=== PATIENT | male | born 1945 | race Caucasian/White ===

== ENCOUNTER 2021-07-22 21:43 | Observation (INO) | payer MEDICARE ==
[2021-07-22 21:48] VITALS: BMI 30.9
[2021-07-22] MEDS ORDERED: Senokot S 8.6-50 MG TAB PO PRN (21:56)
[2021-07-22] MEDS ORDERED: Ondansetron PF 4 MG/2 ML Vial IVP PRN (21:56)
[2021-07-22] MEDS ORDERED: Calcium Carbonate 500 MG ChewTAB PO PRN (21:56)
[2021-07-22] MEDS ORDERED: Acetaminophen 325 MG TAB PO PRN (21:56)
[2021-07-22] MEDS ORDERED: HYDROcodone/Acetaminophen 5/325 mg Tablet PO PRN (21:56)
[2021-07-22] MEDS ORDERED: Zolpidem Tartrate 5 MG TAB PO PRN (21:56)
[2021-07-22] MEDS ORDERED: Guaifenesin DM 100-10/5 ML UDCUP PO PRN (21:56)
[2021-07-22] MEDS ORDERED: Meclizine HCl 25 MG TAB PO PRN (21:59)
[2021-07-22] MEDS ORDERED: Lactated Ringer's 1,000 ML IV SCH (22:00)
[2021-07-22] MEDS ORDERED: Sodium Chloride 0.9% 500 ML IV SCH ×2 (22:15→23:45)
[2021-07-22 22:32] LABS: Troponin I 0.183 ng/mL (< 0.028)
[2021-07-23 07:45] LABS: Anion Gap 12 mmol/L (10-20); BUN (Urea Nitrogen) 20 mg/dL (8.4-25.7); Calc. Creatinine Clearance 72 mL/min (70-130); Calcium 8.7 mg/dL (7.8-10.44); Carbon Dioxide 23 mmol/L (23-31); Cardiac Risk 3.5 (Less than 4.5); Chloride 107 mmol/L (98-107); Cholesterol 94 mg/dl (< 200 Desired); Glucose 84 mg/dL (83-110); HDL Cholesterol 27 mg/dL (>60 Neg Risk); LDL Cholesterol, Calculated 52 mg/dL; Potassium 3.9 mmol/L (3.5-5.1); Sodium 138 mmol/L (136-145); Triglycerides 75 mg/dL (Less than 150)
[2021-07-23 07:52] LABS: CKMB 2.3 ng/mL (0-6.6)
[2021-07-23] MEDS: Famotidine 20 MG TAB PO SCH ×2 (08:35→20:34)
[2021-07-23] MEDS: Aspirin 81 mg Enteric Coated Tablet PO SCH (08:35)
[2021-07-23] MEDS: Multivitamin W/ Minerals 1 TAB PO SCH (08:36)
[2021-07-23] MEDS: Ubidecarenone 50 MG CAP PO SCH ×2 (08:36→20:34)
[2021-07-23] MEDS: Atorvastatin Calcium 40 MG TAB PO SCH (08:36)
[2021-07-23] MEDS: Clopidogrel Bisulfate 75 MG TAB PO SCH (08:36)
[2021-07-23] MEDS: Metoprolol Tartrate 25 MG TAB PO SCH ×2 (08:36→22:55)
[2021-07-23] MEDS: Fluticasone Propionate Nasal Spray 16 gm Bottle NASAL SCH (08:38)
[2021-07-23] MEDS ORDERED: Enoxaparin Sodium 40 MG/0.4 ML SYRINGE SC SCH (09:00)
[2021-07-23 17:26] LABS: SARS-CoV-2 PCR by NAA Not Detected (NotDetected)
[2021-07-23] MEDS ORDERED: Communication Order-Pharmacy FS SCH (19:00)
[2021-07-24 06:02] LABS: Anion Gap 13 mmol/L (10-20); BUN (Urea Nitrogen) 13 mg/dL (8.4-25.7); Calc. Creatinine Clearance 82 mL/min (70-130); Calcium 8.9 mg/dL (7.8-10.44); Carbon Dioxide 21 mmol/L (23-31); Chloride 107 mmol/L (98-107); Glucose 83 mg/dL (83-110); Potassium 3.8 mmol/L (3.5-5.1); Sodium 137 mmol/L (136-145)
[2021-07-24 06:15] LABS: #Basophils 0.1 10x3/uL (0.0-0.2); #Eosinphils 0.3 10x3/uL (0.0-0.5); #Monocytes 0.9 10x3/uL (0.0-1.1); #Neutrophils 5.8 10x3/uL (1.5-8.4); %Basophils 0.7 % (0.0-2.0); %Eosinophils 3.3 % (0.0-6.0); %Lymphocytes 20.3 % (18.0-47.0); %Monocytes 10.1 % (0.0-10.0); %Neutrophils 65.1 % (40.0-75.0); Mean Corpuscular Hemoglobin 32.3 pg (27.0-33.0); Mean Corpuscular Volume 94.8 fl (81.2-95.1); Platelet Count 234 10x3/uL (150-450); RBC Distribution Width 14.3 % (11.5-14.5); Red Blood Cell (RBC) Count 4.03 10x6/uL (4.32-5.72); White Blood Cell (WBC) Count 8.9 10x3/uL (3.5-10.5)
[2021-07-24] MEDS ORDERED: Heparin 10,000 UNITS/ 10 ML VIAL ONE ×2 (07:39→09:30)
[2021-07-24] MEDS ORDERED: Nitroglycerin 50 MG/250 ML BOT 250 ML ONE (07:39)
[2021-07-24] MEDS ORDERED: Adenosine 6 MG/2 ML VIAL ONE ×2 (07:40→07:41)
[2021-07-24] MEDS ORDERED: Sodium Chloride 0.9% 1,000 ML ONE (07:41)
[2021-07-24] MEDS ORDERED: Lidocaine 1% (PF) 30 ML VIAL ONE (07:50)
[2021-07-24] MEDS: Ubidecarenone 50 MG CAP PO SCH (07:57)
[2021-07-24] MEDS: Aspirin 81 mg Enteric Coated Tablet PO SCH (07:57)
[2021-07-24] MEDS: Clopidogrel Bisulfate 75 MG TAB PO SCH (07:57)
[2021-07-24] MEDS: Metoprolol Tartrate 25 MG TAB PO SCH (07:57)
[2021-07-24] MEDS: Atorvastatin Calcium 40 MG TAB PO SCH (07:58)
[2021-07-24] MEDS: Famotidine 20 MG TAB PO SCH (07:58)
[2021-07-24] MEDS: Multivitamin W/ Minerals 1 TAB PO SCH (07:58)
[2021-07-24] MEDS: Fluticasone Propionate Nasal Spray 16 gm Bottle NASAL SCH (08:02)
[2021-07-24] MEDS ORDERED: Fentanyl 100 MCG/2 ML VIAL ONE (08:23)
[2021-07-24] MEDS ORDERED: Midazolam HCl 2 mg/2 ml Vial ONE ×2 (08:24→08:48)
[2021-07-24] MEDS ORDERED: Atropine Sulfate 0.4 mg/1 ml Vial ONE (08:28)
[2021-07-24] MEDS ORDERED: Ondansetron PF 4 MG/2 ML Vial ONE (08:28)
[2021-07-24] MEDS ORDERED: TICAGRELOR 90 MG TABLET ONE (09:26)
[2021-07-24] MEDS ORDERED: Protamine Sulfate 50 MG/5 ML VIAL SLOW IVP SCH (10:00)
[2021-07-24] MEDS ORDERED: Protamine Sulfate 250 MG/25 ML VIAL SLOW IVP SCH (10:15)
[2021-07-24 11:44] VITALS: BP 125/70; TEMP 97.4
[2021-07-24] MEDS ORDERED: Sodium Chloride 0.9% 1,000 ML IV SCH (11:45)
[2021-07-24] MEDS: OMEGA ACID ETHYL ESTERS PO SCH ×2 (13:35→13:37)
[2021-07-24] MEDS: [UNRECOGNIZED DRUG - OTHER] PO SCH (13:35)
[2021-07-24] MEDS ORDERED: Atorvastatin Calcium 40 MG TAB PO SCH (21:00)
[2021-07-24] MEDS ORDERED: TICAGRELOR 90 MG TABLET PO SCH (21:00)
[2021-07-25] MEDS ORDERED: Amlodipine 5 MG TAB PO SCH (09:00)
[2021-07-25] MEDS ORDERED: Aspirin Chewable 81 MG TAB PO SCH (09:00)
[2021-07-25] MEDS ORDERED: Hydrochlorothiazide 25 MG TAB PO SCH (09:00)
[2021-07-25] MEDS ORDERED: Losartan Potassium 50 MG TAB PO SCH (09:00)
== END 2021-07-24 15:45 | disposition home or self-care (01) ==
LOC: CSHTELE 21:43
PROVIDERS: ADMIT Family Medicine; ATTEND Nurse Practitioner Family
DX: I21.4 Non-ST elevation (NSTEMI) myocardial infarction (principal); R55 Syncope and collapse; N17.9 Acute kidney failure, unspecified; I73.9 Peripheral vascular disease, unspecified; F17.210 Nicotine dependence, cigarettes, uncomplicated; Z95.820 Peripheral vascular angioplasty status with implants and grafts; I25.10 Atherosclerotic heart disease of native coronary artery without angina pectoris; Z95.1 Presence of aortocoronary bypass graft; E78.5 Hyperlipidemia, unspecified; I13.10 Hypertensive heart and chronic kidney disease without heart failure, with stage 1 through stage 4 chronic kidney disease, or unspecified chronic kidney disease; N18.2 Chronic kidney disease, stage 2 (mild); D75.89 Other specified diseases of blood and blood-forming organs; Z20.822 Contact with and (suspected) exposure to COVID-19; Z79.82 Long term (current) use of aspirin; Z79.02 Long term (current) use of antithrombotics/antiplatelets; Z79.899 Other long term (current) drug therapy; Z79.1 Long term (current) use of non-steroidal anti-inflammatories (NSAID)
CPT/HCPCS: 80048 ×2; 80061; 82553; 82607; 82746; 84484 ×2; 85025; 85347; 85379; 92978; 92979; 93005 ×2; 93306; 93459; 96372; 97139; C1725 ×2; C1753; C1760; C1776; C1874 ×2; C1887 ×2; C9600; C9604; G0378 ×3; U0003; U0005; 36415; 92928; 92937; 93010; 99152; 99153; J0153; J0461; J1644; J1650; J2001; J2250; J2405; J3010; J7030; J7050; J7120